=== PATIENT | female | born 1960 | race Caucasian/White ===

== ENCOUNTER → 2024-02-22 08:28 | Outpatient (REF) | payer OTHER, SELFPAY | LOC: HWRAD 08:28 | PROVIDERS: ATTENDING PHYSICIAN Nurse Practitioner Family | DX: M85.89 Other specified disorders of bone density and structure, multiple sites (principal); Z12.31 Encounter for screening mammogram for malignant neoplasm of breast | CPT/HCPCS: 77063; 77067; 77080 ==

== ENCOUNTER → 2024-04-03 17:17 | Outpatient (REF) | payer OTHER, SELFPAY | LOC: PAVMRI 17:17 | PROVIDERS: ATTENDING PHYSICIAN Nurse Practitioner Family | DX: M25.512 Pain in left shoulder (principal) | CPT/HCPCS: 73221 ==

== ENCOUNTER → 2024-04-18 08:49 | Outpatient (REF) | payer OTHER, SELFPAY | LOC: HWRAD 08:49 | PROVIDERS: ATTENDING PHYSICIAN Obstetrics & Gynecology; FAMILY PHYSICIAN Nurse Practitioner Family | DX: N85.00 Endometrial hyperplasia, unspecified (principal) | CPT/HCPCS: 76830; 76856 ==

== ENCOUNTER 2024-05-31 00:03 | Emergency (ER) | payer OTHER, SELFPAY ==
[2024-05-31 00:11] VITALS: BP 124/68
[2024-05-31 00:28] VITALS: BP 135/72
[2024-05-31 00:39] VITALS: BMI 25.2
[2024-05-31 00:48] LABS: ALT (SGPT) 21 U/L (0-35); AST (SGOT) 29 U/L (14-36); Albumin 4.3 g/dl (3.5-5.0); Alkaline Phosphatase 104 U/L (38-126); Blood Urea Nitrogen 25 mg/dl (7-17); Calcium 9.9 mg/dl (8.4-10.2); Carbon Dioxide 23 mmol/L (22-30); Chloride 105 mmol/L (98-107); Estimated Creatinine Clearance 61 ml/min; Glucose 179 mg/dl (70-99); Sodium 139 mmol/L (135-145); Total Bilirubin 0.3 mg/dl (0.2-1.3); Total Protein 7.6 g/dl (6.3-8.2); eGFR > 60.00
[2024-05-31 00:50] LABS: % Basophils 0.5 % (0-2); % Eosinophils 0.7 % (0-6); % Immature Granulocytes 1.6 % (0-0.5); % Lymphocytes 12.7 % (20.5-51.1); % Monocytes 4.3 % (1.7-9.3); % Neutrophils 80.2 % (42.2-75.2); Absolute Basophils 0.1 10^3/uL (0-0.2); Absolute Eosinophils 0.1 10^3/uL (0-0.7); Absolute Immature Granulocytes 0.2 10^3/uL (0-0.05); Absolute Lymphocytes 1.5 10^3/uL (1.2-3.4); Absolute Monocytes 0.5 10^3/uL (0.1-0.6); Absolute Neutrophils 9.5 10^3/uL (1.4-6.5); Hematocrit 32.7 % (37.0-47.0); Hemoglobin 10.9 g/dL (12.0-16.0); Mean Corp Hgb Conc. 33.3 g/dL (33.0-37.0); Mean Corpuscular Hgb 28.2 pg (27.0-31.0); Mean Corpuscular Volume 84.7 fL (81.0-99.0); Mean Platelet Volume 9.5 fL (7.4-10.4); Nucleated Red Blood Cells % 0 %; Platelet Count 419 10^3/uL (130-400); Red Blood Cell Count 3.86 10^6/uL (4.20-5.40); Red Cell Dist. Width 14.7 % (11.5-14.5); White Blood Cell Count 11.9 10^3/uL (4.8-10.8)
[2024-05-31 00:51] LABS: Glucose - Point of Care 173 mg/dl (70-99)
[2024-05-31 00:51] LABS: COVID-19 Antigen Negative (Negative)
[2024-05-31 01:00] VITALS: BP 130/68
[2024-05-31] MEDS: NSS 500 IV (01:55)
[2024-05-31] MEDS: ZOFRAN 4 MG IV (01:55)
[2024-05-31 02:00] VITALS: BP 138/65
--- NOTE | 2024-05-31 02:28 | ED.GENMED ---
History of Present Illness
General
Chief Complaint: Fainting Sensation
Source: patient and family
Exam Limitations: none
Time Seen by Provider: 05/31/24 01:00
History of Present Illness
History of Present Illness:
64-year-old female with a history of gastric cancer who would likely has been in remission and doing well but has a history of Abelardo-en-Y surgery. Patient presents after she started not feel well at home. The patient states that she took a Benadryl
but also took Tylenol PM. She then about 30 minutes later began to feel little bit nauseous and tingling in her extremities. She states her symptoms seemed a little better in the ambulance but have returned. She does have a history of vertigo but
states this does not feel the same. No fevers. No abdominal pain. No chest or shortness of breath. She also states she has had a recent cold
Past History
Past History
ED Past Medical History: Other (Gastric cancer, positional vertigo) and Other (Urethral diverticulum)
ED Past Surgical History: Other (Splenectomy, Abelardo-en-Y with full gastrectomy)
Social History
Tobacco: Non-smoker
Alcohol: None
Drug: None
Personal:
Employment: Employed
Family History
Family History: Other
Phy Exam
Physical Exam
Physical Exam:
CONSTITUTIONAL Patient alert and oriented to person, place and time. Well-appearing. Vital signs reviewed.
HEAD atraumatic, normocephalic.
EYES eyelids normal to inspection, Pupils equally round and reactive to light, Extraocular muscles intact, Conjunctiva normal, Sclera normal.
NECK normal range of motion, Trachea midline, no jugular venous distention.
RESPIRATORY CHEST No respiratory distress noted, Chest expansion equal, Bilateral breath sounds clear.
CARDIOVASCULAR regular rate and rhythm, Heart sounds normal.
ABDOMEN abdomen nontender, Bowel sounds normal. No distention.
BACK normal inspection, no obvious deformities
UPPER EXTREMITY range of motion normal, Motor strength normal, no cyanosis, no edema.
LOWER EXTREMITY range of motion normal, Motor strength normal, no cyanosis, no edema.
NEURO Speech normal, No focal motor deficits, Compton coma scale 15, Memory normal, Cranial Nerves intact to screening exam.
SKIN skin warm, dry, and normal in color.
PSYCHIATRIC patient oriented to person place and time, Normal affect.
Course
Orders/Labs/Results
Orders:
Orders
05/31/24 00:26
CBC/With Diff [Complete Blood Count/With Diff] Urgent
COVID-19 Antigen Urgent
Source: Nasal Swab
Comprehensive Metabolic Panel Routine
05/31/24 00:36
ECG [Electrocardiogram (*1)] Urgent
Reason for Study: Vertigo / Dizzy
Cardiology Consult: Unknown
05/31/24 00:37
EKG- Treatment ONCE
05/31/24 01:46
0.9% Sodium Chloride 500 ml [Nss] 500 ml IV BOLUS
Ondansetron Injectable [Zofran] 4 mg IV NOW STA
Abnormal Lab Results
05/31/24 05/31/24
00:26 00:50
WBC 11.9 H 10^3/uL
(4.8-10.8)
RBC 3.86 L 10^6/uL
(4.20-5.40)
Hgb 10.9 L g/dL
(12.0-16.0)
Hct 32.7 L %
(37.0-47.0)
RDW 14.7 H %
(11.5-14.5)
Plt Count 419 H 10^3/uL
(130-400)
Abs Immat Gran (auto) 0.2 H 10^3/uL
(0-0.05)
Absolute Neuts (auto) 9.5 H 10^3/uL
(1.4-6.5)
Immature Gran % 1.6 H %
(0-0.5)
Neutrophils % 80.2 H %
(42.2-75.2)
Lymphocytes % 12.7 L %
(20.5-51.1)
BUN 25 H mg/dl
(7-17)
Glucose 179 H mg/dl
(70-99)
POC Glucose 173 H mg/dl
(70-99)
05/31/24 00:26
05/31/24 00:26
Vital Signs
Initial and Last Documented VS:
Initial Vital Signs
Temp Pulse Resp BP Pulse Ox
98.4 F 75 20 124/68 99
05/31/24 00:11 05/31/24 00:11 05/31/24 00:11 05/31/24 00:11 05/31/24 00:11
Last Documented Vital Signs
Temp Pulse Resp BP Pulse Ox
98.4 F 70 11 138/65 97
05/31/24 00:11 05/31/24 02:15 05/31/24 02:15 05/31/24 02:00 05/31/24 02:15
MDM/Problems Addressed
MDM/Problems Addressed:
Medication reaction, nausea
*Pulse Oximetry
Patient hypoxic: no
*EKG
Interpreted by ED Provider?: Yes
Rate: normal
Rhythm: sinus
Filley: normal axis
Ischemia: no ischemia
*Sheet Metal Insulator Interpretation
Rate: normal
Interpretation: normal
Rhythm: sinus
*Critical Care Note
Total Time (30-74mins, 75-104mins- exclusive of procedures): Not Applicable
Data Reviewed
Source: patient and family
Further Testing Considered But Not Given:
Consider CT but abdomen benign on exam
Patient Management
Escalation/DeEscalation of care consider admission/obs:
Patient appears well feels much better after fluids and antiemetics. Suspect related to taking too much Benadryl all in 1 dose. She did not realize there is Benadryl Tylenol PM. I do feel she is safe for discharge outpatient follow-up. No focal
motor deficits no clinical concern for ACS
ED Attending Note
-
Portions of this chart may have been created with voice recognition software.� Occasional wrong word or��sound alike� substitutions may have occurred due to the inherent limitations of voice recognition software.
Discharge Plan
Departure
Patient Disposition: Home (Routine Discharge)
Date of Disposition: 05/31/24
Time of Disposition: 02:31
Patient with high blood pressure during this ER visit?: No
Discharge Problem:
Nausea, Medication reaction
Prescriptions:
No Action
pantoprazole [Protonix] 40 mg tablet,delayed release (DR/EC)
40 mg PO BID Qty: 60 0RF
ferrous gluconate 324 mg (38 mg iron) tablet
324 mg PO BID Qty: 60 0RF
docusate sodium [Colace] 100 mg capsule
100 mg PO BID Qty: 60 0RF
Referrals:
Jose Rafael Canas CRNP [Family Provider] -
Activity Restrictions/Additional Instructions:
Please drink plenty fluids. Please avoid taking too much Benadryl and 1 dose. Return immediately for intractable vomiting, abdominal pain, fevers or any other concerns.
Interventions
Interventions:
*Risk Screen - Suicide Last Done: 05/31/24 00:11
*General Assessment Last Done: 05/31/24 00:11
*Neglect/Abuse Screening Last Done: 05/31/24 00:11
ED- Fall Risk Assessment Last Done: 05/31/24 00:29
*ED COVID-19 Vaccine History Last Done: 05/31/24 00:11
ED- Cardiac Assessment Last Done: 05/31/24 00:29
ED- Neurological Assessment Last Done: 05/31/24 00:29
Discharge Date and Time
Print Language: UKRAINIAN
== END 2024-05-31 02:47 | disposition home or self-care (01) ==
LOC: EMR 00:03
PROVIDERS: Emergency Medicine; EMERGENCY PHYSICIAN Emergency Medicine; FAMILY PHYSICIAN Nurse Practitioner Family
DX: R11.0 Nausea (principal); R20.2 Paresthesia of skin; T50.905A Adverse effect of unspecified drugs, medicaments and biological substances, initial encounter; Z11.52 Encounter for screening for COVID-19; Z85.028 Personal history of other malignant neoplasm of stomach; Z90.81 Acquired absence of spleen; Z88.1 Allergy status to other antibiotic agents; Z88.8 Allergy status to other drugs, medicaments and biological substances; Z91.048 Other nonmedicinal substance allergy status
CPT/HCPCS: 80053; 82962; 85025; 87811; 93005; 96361; 96374; 99284

== ENCOUNTER → 2024-08-15 14:16 | Outpatient (REF) | payer OTHER, SELFPAY | LOC: HWRAD 14:16 | PROVIDERS: ATTENDING PHYSICIAN Nurse Practitioner Family | DX: N20.0 Calculus of kidney (principal) | CPT/HCPCS: 76770 ==

== ENCOUNTER → 2025-07-14 12:15 | Outpatient (REF) | payer OTHER, SELFPAY | LOC: HWWDC 12:15 | PROVIDERS: ATTENDING PHYSICIAN Obstetrics & Gynecology; FAMILY PHYSICIAN Nurse Practitioner Family | DX: Z12.31 Encounter for screening mammogram for malignant neoplasm of breast (principal) | CPT/HCPCS: 77063; 77067 ==

== ENCOUNTER 2025-09-22 06:18 | Day surgery (SDC) | payer OTHER, SELFPAY | END 2025-09-22 08:45 | disposition home or self-care (01) | LOC: GI 06:18 | PROVIDERS: ATTENDING PHYSICIAN Internal Medicine Gastroenterology | DX: D50.9 Iron deficiency anemia, unspecified (principal); K64.8 Other hemorrhoids; K57.30 Diverticulosis of large intestine without perforation or abscess without bleeding; D12.4 Benign neoplasm of descending colon | CPT/HCPCS: 45380; 88305 ==